=== PATIENT | male | born 1955 | race Caucasian/White ===

== ENCOUNTER 2024-08-17 15:25 | Emergency (ER) | payer SELFPAY ==
[~2024-08-17] VITALS: Ht 172.7 cm; Wt 85.0 kg
[2024-08-17 15:34] VITALS: O2SAT 95
[2024-08-17] MEDS: ACETAMINOPHEN 325MG TABLET PO ONE (16:49)
[2024-08-17] MEDS: TETANUS, DIPHTHERIA, PERTUSSIS VAC/PF 0.5ML (>10YR OLD) IM ONE (17:14)
[2024-08-17] MEDS ORDERED: ACET-2708 MT (18:03)
[2024-08-17 18:22] VITALS: BP 183/82; PULSE 70; RESP 18; TEMP 36.8; O2SAT 96
== END 2024-08-17 18:23 | disposition home or self-care (01) ==
LOC: ER 15:25
DX: S01.81XA Laceration without foreign body of other part of head, initial encounter (principal); I10 Essential (primary) hypertension; W22.8XXA Striking against or struck by other objects, initial encounter; Y93.89 Activity, other specified; Y92.89 Other specified places as the place of occurrence of the external cause; Y99.8 Other external cause status
CPT/HCPCS: 70450; 90715; 12001; 90471; 99285; Z7610